=== PATIENT | male | born 1975 | race Hispanic/Latino ===

== ENCOUNTER 2016-05-13 14:55 | Emergency (ER) | payer SELFPAY ==
[~2016-05-13] VITALS: Ht 185.4 cm; Wt 109.1 kg
[2016-05-13 15:00] VITALS: BP 162/94; PULSE 83; RESP 15; O2SAT 98
[2016-05-13 16:40] LABS: BASOPHILS % (AUTO) 0.4 % (0-3); EOSINOPHILS % (AUTO) 1.6 % (0-5); MONOCYTES % (AUTO) 6.3 % (4-12); Mean Corpuscular Hemoglobin 28.2 pg (27.0-35.0); Mean Corpuscular Volume 80.6 fL (81-100); NEUTROPHILS % (AUTO) 63.2 % (40-74); Platelet Count 293 bil/L (150-400)
--- NOTE | 2016-05-13 18:12 | ED.REPORT ---
HPI-Extremity Problem Lower Date of Service May 13, 2016 ED Provider: Ankita Baron MD This is a 40 year old male with a history of DM presenting to the emergency department complaining of R foot swelling that worsened 12 hours ago. Pt was admitted to a hospital in [place] 7 months ago for one week and diagnosed with staph infection to the R foot, at this time he was tested for osteomyelitis which was negative. Pt reports persistent wound at the site. However today, he woke up with significant R foot swelling which prompted his ER visit today. Reports numbness, tingling, and a "tight" feeling in the foot. This is associated with shooting pain up the R calf. Denies fever, chills, cough , abdominal pain, nausea or vomiting. Nursing Notes Stated Complaint: RIGHT FOOT SWOLLEN/PURPLE Chief Complaint: Extremity Trauma Nursing Notes Reviewed: Yes Allergies: Coded Allergies: No Known Allergies (Unverified , 05/13/16) Scheduled Sulfamethoxazole/Trimeth 800-160 mg (Bactrim DS 800-160 mg) 1 Each Tablet 1 TABLET PO BID General Time Seen by MD: 18:04 Chief Complaint Foot injury right Hx Obtained From: Patient Arrived By: Walk-in Onset Occurred: 9 - 12 hours ago (6 months) Symptom Duration: Since onset Severity: Current: No pain currently Pertinent Negative: Pt denies other symptoms Recent Healthcare: No recent doctor visit, No recent hospitalization Similar Sx Previous: No Past Medical History Past Medical History Reports: Diabetes mellitus Past Surgical History Denies Ambulatory Status Independent Review of Systems Constitutional: Denies: Chills, Fever Musculoskeletal: Reports: Extremity pain, Extremity swelling Neurologic: Denies: Headache Complete sys rev & neg: except as marked. GI: Denies: Abdominal pain, Nausea, Vomiting Physical Exam Initial Vital Signs Vital Signs (First) Date Time Temp Pulse Resp B/P Pulse Ox O2 Delivery O2 Flow Rate FiO2 05/13/16 15:00 36.8 83 15 162/94 98 05/13/16 19:42 Room Air Initial VS: Reviewed General/Constitutional: Well-developed, Well-nourished Head / Eyes: Atraumatic, Normocephalic, PERRL ENT: Mucous membranes moist, Conjunctiva normal, No scleral icterus Neck: Supple, Non-tender, Full range of motion Respiratory: Breath sounds normal, Clear to auscultation, No respiratory distress Cardiovascular: Regular rate & rhythm, Heart sounds normal, Intact distal pulses Abdomen / GI: Soft, Non-tender, No guarding, No rebound, No distention Upper Extremities: Vascular intact, Neuro intact, No swelling, No tenderness Skin: Warm, Dry, No cyanosis Neurologic: Alert, Oriented, Nonfocal Psychiatric: Mood/affect normal, Behavior normal, Normal thought content Lower Extremity / Pelvis / MS: Atraumatic, Inspection NL, Full range of motion , No swelling, Non-tender, No erythema, No deformity, Neurologic intact, Vascular intact, No edema Ankle / Foot: Neurologic intact R foot: Ball under R great toe has a callus with granular tissue, 2-3 cm deep ulceration without surrounding erythema, edema, or purulence. Wound is well-appearing. Interpretation & Diagnostics Interpretation & Diagnostics: R FOOT X-RAY IMPRESSION: 1. Cutaneous ulcer on the plantar aspect of the foot with subjacent mild periosteal reaction at the base of the 1st proximal phalanx and probable small ulcer. The findings are highly suspicious for osteomyelitis. Further evaluation may be obtained with an MRI if clinically indicated. Dictated by: Kris Adams M.D. on 05/13/2016 at 18:54 Approved by: Kris Adams M.D. on 05/13/2016 at 18:56 Lab Results Interpretation Result Diagram: 05/13/16 1625 05/13/16 1625 Test 05/13/16 16:25 White Blood Count 7.0th/mm3 (3.8-10.1) Red Blood Count 4.58mil/mm3 (4.40-5.80) Hemoglobin 12.9g/dL (13.8-17.2) Hematocrit 36.9% (41.0-50.0) Mean Corpuscular Volume 80.6fL (81-100) Mean Corpuscular Hemoglobin 28.2pg (27.0-35.0) Mean Corpuscular Hemoglobin Concent 35.0% (32.0-37.0) Red Cell Distribution Width 12.3% (12.3-15.4) Platelet Count 293bil/L (150-400) Neutrophils (%) (Auto) 63.2% (40-74) Lymphocytes (%) (Auto) 28.4% (14-46) Monocytes (%) (Auto) 6.3% (4-12) Eosinophils (%) (Auto) 1.6% (0-5) Basophils (%) (Auto) 0.4% (0-3) Sodium Level 136mEq/L (134-144) Potassium Level 4.4mEq/L (3.5-5.2) Chloride Level 100mEq/L (97-108) Carbon Dioxide Level 21mmol/L (18-29) Blood Urea Nitrogen 19mg/dL (6-24) Creatinine 0.55mg/dL (0.76-1.27) Estimat Glomerular Filtration Rate 175mL/min (>59) Glucose Level 196mg/dL (60-99) Lactic Acid Level 1.6mmol/L (0.4-2.0) Calcium Level 9.0mg/dL (8.5-10.1) Total Bilirubin 0.3mg/dL (0.0-1.2) Aspartate Amino Transf (AST/SGOT) 13U/L (0-50) Alanine Aminotransferase (ALT/SGPT) 14U/L (0-44) Alkaline Phosphatase 57U/L (25-150) Total Protein 6.8g/dL (6.4-8.4) Albumin 4.0g/dL (3.4-5.0) Re-Eval/Medical Decision Med Decision/Clinical Course 40-year-old male with past medical history of insulin-dependent diabetes here with ulcer to his right foot associated with the swelling. Differential diagnosis includes but is not limited to osteomyelitis versus cellulitis versus diabetic foot wound versus chronic ulcer. Patient's CBC is remarkable for very mild anemia, without leukocytosis. His CMP shows hyperglycemia, and is otherwise normal. His x-ray is concerning for osteomyelitis. Given the patient has completely normal labs aside from hyperglycemia, and he is extremely well appearing, I discussed the case with miranda Harding and have arranged for close outpatient follow-up. She agreed with my assessment to give the patient Bactrim and she requested a wound culture, which I sent. She will see the patient in the next few days. He is amenable to discharge and has been given very strict return precautions. Re-Evaluation/Progress : Time of Eval: 19:23 Re-Evaluation/Progress Note: re-checked, discussed need for close follow up and plan for d/c, all questions addressed. Consultation : Referral / Consult Name: Mirian Elliott DPM Call Returned at: 19:17 Crm Marketing Specialist: Agrees with eval, Agrees with plan Note: rapid transit operator, plan for follow up, recommends bactrim and wound culture. Counseled Regarding: Diagnosis, Lab results, Need for follow-up, When/why to return to ED Discharge & Departure Impression: Primary Impression: Osteomyelitis Osteomyelitis location: foot Laterality: right Chronicity: unspecified Qualified Code: M86.9 - Osteomyelitis, unspecified Disposition: Home Discharge Condition All VS Reviewed: Yes Condition: Stable Patient Instructions: Osteomyelitis (ED) Additional Instructions: Thank you for seeking care at the emergency department today. Take Bactrim as prescribed. Follow up with Dr. Elliott, rapid transit operator. The office will call you to schedule an appointment. Return to the emergency department for any new or worsening symptoms. Referrals: Mirian Elliott DPM Scribe Attestation Portions of this note were transcribed by David Hayes. I, Dr. Baron personally performed the history, physical exam and medical decision-making; I reviewed and confirmed the accuracy of the information in the transcribed note. Signed by: paul Renteria. 05/13/2016, 23:00. Ankita Baron MD May 13, 2016 18:12 DAVID HAYES May 13, 2016 18:23
[2016-05-13] MEDS ORDERED: Trimethoprim-Sulfa 160 mg-800 mg Tablet PO ONE (18:25)
--- NOTE | 2016-05-13 18:57 | DRSVH ---
PROCEDURE: X-RAY RIGHT FOOT COMPLETE, MINIMUM THREE VIEWS ([id number]) INDICATIONS: diabetic foot wound TECHNIQUE: 3 views of the foot were acquired. COMPARISON: None. FINDINGS: Bones: There is suggestion of contrast reaction along the plantar aspect of the base of the 1st prox imal phalanx. Oblique images also demonstrate suggestion of a small erosion at the base of the 1st p roximal phalanx. No fractures or dislocations. Soft tissues: There is soft tissue swelling in the forefoot most prominent in the plantar aspect wit h a cutaneous ulcer demonstrated at the level of the 1st proximal phalanx. IMPRESSION: 1. Cutaneous ulcer on the plantar aspect of the foot with subjacent mild periosteal reaction at the base of the 1st proximal phalanx and probable small ulcer. The findings are highly suspicious for os teomyelitis. Further evaluation may be obtained with an MRI if clinically indicated. Dictated by: Kris Adams M.D. on 05/13/2016 at 18:54 Approved by: Kris Adams M.D. on 05/13/2016 at 18:56
[2016-05-13] MEDS ORDERED: SULF1TAB35 PO (19:27)
[2016-05-13 19:42] VITALS: BP 146/91; PULSE 86; RESP 16; O2SAT 98
[2016-08-27] MEDS ORDERED: LIP40 PO (15:55)
[2016-08-27] MEDS ORDERED: METF1000 PO (15:55)
[2016-08-27] MEDS ORDERED: INSU100I25 SQ (15:55)
== END 2016-05-13 19:44 | disposition home or self-care (01) ==
LOC: SED 14:55
DX: M86.9 Osteomyelitis, unspecified (principal); R20.0 Anesthesia of skin; R20.2 Paresthesia of skin; L84 Corns and callosities; E11.621 Type 2 diabetes mellitus with foot ulcer; L97.419 Non-pressure chronic ulcer of right heel and midfoot with unspecified severity

== ENCOUNTER 2016-08-28 05:34 | Day surgery (SDC) | payer OTHER ==
[2016-08-28] VITALS (13 sets, daily range): BP systolic 111–168; BP diastolic 69–92; PULSE 71–99; RESP 12–22; O2SAT 95–100
[~2016-08-28] VITALS: Ht 185.4 cm; Wt 106.5 kg
[~2016-08-28 05:34] MED LIST: INSU100I25 SQ; LIP40 PO; Lactated Ringer's 1,000 ML IV SCH; METF1000 PO; SULF1TAB35 PO
[2016-08-28] MEDS ORDERED: Glucose 40% Oral Gel 15 Gm Tube PO ONE (05:35)
[2016-08-28] MEDS ORDERED: Ondansetron 2 mg/mL 2 mL Inj ONE (05:35)
[2016-08-28] MEDS ORDERED: Phenylephrine/NS 100 mCg/mL 10 mL Syringe IVPUSH ONE (05:35)
[2016-08-28] MEDS ORDERED: Propofol 10,000 mCg/mL 20 mL Inj ONE (05:35)
[2016-08-28] MEDS ORDERED: EPHEDrine/NS 5 mg/mL 5 mL Syringe ONE (05:35)
[2016-08-28] MEDS ORDERED: Ketamine 10 mg/mL 20 mL Inj ONE (05:35)
[2016-08-28] MEDS ORDERED: CeFAZolin Inj 2 GM in IV Premix 1 EACH IV ONE (06:00)
[2016-08-28] MEDS ORDERED: Lactated Ringer's 1,000 ML IV ONE ×2 (06:43→08:16)
[2016-08-28] MEDS ORDERED: Insulin LISPRO 300 Unit/3 mL Inj ONE (07:09)
[2016-08-28] MEDS ORDERED: Lactated Ringer's 1,000 ML IV SCH (07:27)
[2016-08-28] MEDS ORDERED: Lactated Ringer's 500 ML IV PRN (07:27)
--- NOTE | 2016-08-28 07:27 | PCM.HPANE ---
Patient Data Surgeon Admitting Provider: Attending Provider:Mirian Elliott DPM Primary Care Physician:Jatinder Pride Other Provider:Terri Sosa Anesthesia Reason for Visit Right Foot Lisfranc Dislocation Ht/WT & BMI Height (Feet): 6 Height (Inches): 1.00 Weight (Kilograms): 106.5 Body Mass Index 31.00 Allergies Coded Allergies: No Known Allergies (Unverified , 08/27/16) Past Anesthesia History Anesthesia History: Denies:: Anesthesia Reactions, Malignant Hyperthermia Diabetes History Hx Diabetes?: Yes (INSULIN) Type of Diabetes: Type II Glycemic Control: Insulin & Oral Medication Current Bedside Blood Glucose: 256 MRSA MRSA: No Medications Hypertension Medication: No Home Meds Incl Beta Fadumo: No Reported Medications Metformin (Glucophage)1,000 Mg Tablet1,000 Mg PO BID Ref 0 08/27/16 Insulin Detemir (Levemir Flextouch)100 Unit/1 Ml Insuln.pen40 Unit SQ HS 08/27/16 Atorvastatin (Lipitor)40 Mg Lsickg21 Mg PO DAILY Ref 0 08/27/16 Discontinued Scripts Sulfamethoxazole/Trimeth 800-160 mg (Bactrim DS 800-160 mg)1 Each Tablet1 Tablet PO BID #20 TABLET Ref 0 Prov:Ankita Baron MD 05/13/16 History History of ENT Problems?: No HEENT History: Denies:: Abnormal Airway Difficult Intubation Denture Type: None Teeth Condition: Within Normal Limits Hx of Heart Problems?: Yes Cardiovascular History: Denies:: Congestive Heart Failure Heart Murmur Hypertension (HYPERLIPIDEMIA) Hx of Respiratory Problem?: No Respiratory History: Denies:: Tuberculosis Use of C-PAP Machine Hx Neurologic Problems?: Yes Other Neurological Pertinent: C/OF DIABETIC NEUROPATHY Hx of GI Problems?: No Hx of Problems?: No Male Hx: Denies:: Prostate Problems Scrotal Mass Testicular Surgery Skin History: Positive for:: Pressure Ulcers (RT GREAT TOE) Denies:: History Skin Disorders? Hx Musculoskeletal Problems?: Yes Musculoskeletal History: Positive for:: Musculoskeletal Trauma (S/P RT FOOT RPR RT FOOT LISFRANC FX=CURRENT PROBLEM) Hx of Psycho/Social Problems?: No Hx Surgeries?: Yes (R foot) Hx Any Other Health Problems?: Yes Other History: Denies:: Cancer Endocrine Disease Hospitalization Thyroid Disease Hx Diabetes: Yes (INSULIN)Bedside Blood Glucose: 256 Hx Alcohol Use: NoHx Substance Use: Yes (marijuana) Smoking Status: Never Smoker Have You Smoked inLast 12 mo: No Stop/Bang Treated for Sleep Apnea?: No Do You Have a CPAP Machine?: No S-Snoring: Do You Snore Loudly: No T-Tired: feel tired, fatigued: No O-Obsered: Observed not breath: No P-Blood Pressure: treated: No B- Body Mass Index > 35 kg/m2: No A- Age over 50: No N- Neck Large Circumference: No G- Gender Male: Yes MANUELITO Total Score: 1 Risk Assessment Category Category 1A: Patient has history of documented sleep apnea, and HAS NOT received any narcotic, sedative or anesthesia administration during this stay. Category 1B: Patient has history of documented sleep apnea, and HAS received any narcotic , sedative or anesthesia administration during this stay Category 2: Patient has SUSPECTED Obstructive Sleep Apnea, and HAS received any narcotic , sedative or anesthesia administration during this stay. Category 3: Patient has SUSPECTED Obstructive Sleep Apnea and HAS NOT received narcotic, sedative or anesthesia administration during this stay. Category 4: Outpatient in Procedural Areas with known sleep apnea or who screen positive for High Risk via the STOP/BANG questionnaire. Exam Exam Vital Signs Vital Signs Date Time Temp Pulse Resp B/P Pulse Ox O2 Delivery O2 Flow Rate FiO2 08/28/16 06:28 36.6 79 18 111/72 98 Room Air General Appearance: Alert, Oriented X3, Cooperative, No Acute Distress HEENT/AIRWAY: MP 2 Lungs: Clear to Auscultation, Normal Air Movement Heart: Exam Unremarkable, Regular Rate/Rhythm, No Murmurs/Rubs/Gallops Meds/Labs/Diagnostics Admission Meds Current Medications Lactated Ringer's (Lr) 1,000 ml @ ud STK-MED ONCE IV Last administered on 08/28t 06:43; Start 08/28/16 at 06:43; Stop 08/28/16 at 06:44; Status DC Bedside Blood Glucose: 256 Plan Impression Patient chart reviewed, patient interviewed and anesthestic plan with risks, benefits, and alternatives discussed, and informed consent obtained. ASA Physical Status: ASA3 Severe Disease (dm with complicatins) Anesthetic Plan: GA Bene/Risks/Altern/Consents: Yes HP Complete Prior to Induction: Yes César Winter MD August 28, 2016 07:27
[2016-08-28] MEDS ORDERED: Gentamicin 40 mg/mL 2 mL Inj IRRIGATION ONE (07:29)
[2016-08-28] MEDS ORDERED: Insulin LISPRO 300 Unit/3 mL Inj IV ONE ×2 (07:29→11:00)
[2016-08-28] MEDS ORDERED: Ondansetron 2 mg/mL 2 mL Inj IVPUSH PRN ×2 (07:30→10:00)
[2016-08-28] MEDS ORDERED: Dexamethasone 4 mg/mL Inj IVPUSH PRN (07:30)
[2016-08-28] MEDS ORDERED: fentaNYL-PF 50 mCg/mL 2 mL Inj IVPUSH PRN (07:30)
[2016-08-28] MEDS ORDERED: HYDROmorphone 1 mg/mL Inj IVPUSH PRN (07:30)
[2016-08-28] MEDS ORDERED: Phenylephrine 10,000 mCg/mL Inj IVPUSH PRN (07:30)
[2016-08-28] MEDS ORDERED: MetoCLOpramide 5 mg/mL 2 mL Inj IVPUSH PRN (07:30)
[2016-08-28] MEDS ORDERED: EPHEDrine Sulfate 50 mg/mL Inj IVPUSH PRN (07:30)
[2016-08-28] MEDS ORDERED: Bupivacaine-MPF 0.5% 30 mL Inj INFILTRATE ONE (08:00)
--- NOTE | 2016-08-28 10:06 | PCM.PODBR ---
Immediate Operative Note Date of Service: August 28, 2016 Date of Service August 28, 2016 Pre Operative Diagnosis Right 2nd and 3rd tarsometatarsal fracture dislocation Post Operative Diagnosis Right 2nd and 3rd tarsometatarsal fracture dislocation Procedure Right 2nd and 3rd Tarsometatarsal fusion and intercuneiform stabilization Surgeon Surgeon: Mirian Elliott DPM Assistants: None Findings Consistent with CT findings. Good reduction. Slight shortening of 2nd met due to comminution. Grafts, Implants: Implants-See Implant Record Complications There were no periprocedural complications identified. Condition Stable Anesthetic Administered: GA Drains: None Catheters: None Output, Estimated Blood Loss: 10 (ml) Blood Admin during surgery: No Surgical Cast or Splint: Well-padded Short Leg Splint Surgical Specimen Removed: No Surgical Specimen sent to Path: No Post Operative Plan No weightbearing on right foot Additional Information Overnight stay for pain control, NWB and PT, postop IV antibiotics due to previous Hx of osteomyelitis. Mirian Elliott DPM August 28, 2016 10:06
--- NOTE | 2016-08-28 11:00 | DRSVH ---
PROCEDURE: X-RAY RIGHT FOOT COMPLETE, MINIMUM THREE VIEWS ([id number]) INDICATIONS: immediate post-op TECHNIQUE: 3 views of the foot were acquired. COMPARISON: [facility], CR, XR FOOT MIN 3VW WT BEARING RT, 06/28/2016, 17:10. [facility], CR, XR FOOT MIN 3VW WT BEARING RT, 08/16/2016, 14:34. [facility], CT, CT FOOT RT WO CON, 08/20/2016, 12:34. [facility], CR, XR FOOT 3VW RT, 05/13/2016, 18:29. FINDINGS: Bones: No fractures or dislocations. No suspicious bony lesions. There is postoperative fusion scr ews and plate involving the first and second tarsal-metatarsal regions. Normal alignment established . Soft tissues: No tibiotalar joint effusion. Achilles tendon appears normal. IMPRESSION: Normal alignment established after ORIF and fusion of Lisfranc fracture previously identi fied. Mild irregularity at the medial aspect of the first MTP joint does not appear to have worsened from t he prior study 05/13/16. Dictated by: Valeriano Schneider M.D. on 08/28/2016 at 10:55 Approved by: Valeriano Schneider M.D. on 08/28/2016 at 10:58
--- NOTE | 2016-08-28 11:21 | PCM.ANEP1 ---
Post Anesthesia PACU Phase 1 Assessment Vital Signs Vital Signs Date Time Temp Pulse Resp B/P Pulse Ox O2 Delivery O2 Flow Rate FiO2 08/28/16 10:11 81 16 122/72 95 08/28/16 10:05 79 15 133/83 96 08/28/16 10:00 37.4 77 14 133/87 95 Room Air 08/28/16 06:28 36.6 79 18 111/72 98 Room Air Anesthetic Administered: GA Level of Alertness: Sleepy, easy to arouse MARIEE's with Equal Strength: Yes Pain: No Nausea or Vomiting: No CV Function & Hydration Stable: Yes Airway Device: none Oxygen Delivery: Simple Mask Lungs: Clear to Auscultation, Normal Air Movement Dermatome Level: Full Sensation PACU Phase 2 Assessment Complications: No Follow up Care: No Patient Instructions Provided: Yes César Winter MD August 28, 2016 11:21
--- NOTE | 2016-08-28 13:06 | PCM.HPMED ---
Subjective Date of Service August 28, 2016 Primary Provider: Admitting Physician: Primary Care Physician: Jatinder Pride Attending Physician: Mirian Elliott DPM Chief Complaint: diabetes management medical consult History of Present Illness: 40-year-old inflamed Zak with S medical history of diabetes type II, neuropathy,. Prior osteomyelitis of the right foot is presenting to the floor following repair of right second and third metatarsal tarsal metatarsal fracture dislocation by Dr. Elliott. Red Team is consulted for medical management. Patient states that he does not know what his A1c is, he confirms to me that he takes metformin 500 mg twice a day, atorvastatin, Levemir 40 units at night. He did take his insulin last night, he denies recent hypoglycemic incidents. He does not know what his last A1c was. He sees Jatinder Leblanc at the residency clinic who is working on a diabetes plan for him. Patient stands on his feet at work 11 hours a day and does not know when he has suffered the Lisfranc fractures. His surgeon Dr. Manuel would like for him to stay on Ancef until tomorrow evening with the plan to discharge him tomorrow evening. There is no blood work ordered for today per records. Vital signs are stable Review of Systems: Gen.: No weight gain patient has not been having fevers and malaise Eyes: no visual disturbances or blurring vision HEENT: No nose/throat drainage, no pain in ears or throat, no hearing loss Lymph: No lymph nodes noted Cardiac: No chest pain, orthopnea, PND, palpitations , pedal edema or dyspnea on exertion Pulmonary: Denies wheezing or bringing up of sputum worsening dyspnea and cough, left-sided chest pain GI: No anorexia nausea vomiting blood or black in the stool : no dysuria hematuria urinary frequency or decrease in urine output. Currently has an urge to urinate but says he does not really Go Musculoskeletal: Pain is 0-10 in the left foot Neuro: No syncope, seizures no loss of consciousness no new focal weakness, numbness or tingling Psychiatric: New new anxiety insomnia or depression Endocrine: No new heat or cold intolerances polyuria or polydipsia Hematology: No lymphadenopathy or easy bleeding or bruising noted skin: No new rashes, stasis dermatitis Allergies Coded Allergies: No Known Allergies (Unverified , 08/27/16) PMH Diabetes type II, neuropathy, prior osteomyelitis that resolved after Bactrim Surgical History Appendectomy Family History Denies strokes or heart disease in family Mother: Diabetes Bed: Diabetes, unknown finding and a colonoscopy Social History Occupation: works at a company making buil Hx Alcohol Use: No (quit 6 months ago) Hx Substance Use: Yes (marijuana, last usage was 2 days ago) Smoking Status: Never Smoker Living Arrangement: with Family (. Brothers family) Exam Vital Signs Vital Sign - Last Date Time Temp Pulse Resp B/P Pulse Ox O2 Delivery O2 Flow Rate FiO2 08/28/16 12:01 36.6 80 20 127/80 98 Room Air Exam Gen.: No acute distress HEENT: Normocephalic, atraumatic Heart: Regular rate and rhythm last S4 sounds Lungs: Clear to auscultation no crackles or wheezes Abdomen soft nontender nondistended normal bowel sounds Extremities right leg is wrapped in dressings all the way up to above the knee normal range of motion in the left leg Vascular: Pedal pulses are present in the left leg foot Neuro: No focal deficits Psych: Negative for anxiety Lab and Diagnostics X-Rays, CTs and MRIs IMPRESSION: 1. Lisfranc fracture-dislocation involving the 2nd and 3rd tarsometatarsal joints as described. 2. Bony erosive changes and fragmentation medially at the 1st metatarsophalangeal and 1st interphalangeal joints likely representing sequelae of osteomyelitis. Dictated by: Kris Adams M.D. on 08/20/2016 at 15:21 Approved by: Kris Adams M.D. on 08/20/2016 at 15:44 08/20/16 CT Foot MPRESSION: Normal alignment established after ORIF and fusion of Lisfranc fracture previously identified. Mild irregularity at the medial aspect of the first MTP joint does not appear to have worsened from the prior study 05/13/16. Dictated by: Valeriano Schneider M.D. on 08/28/2016 at 10:55 Approved by: Valeriano Schneider M.D. on 08/28/2016 at 10:58 Assessment & Plan This is a 40-year-old male with past medical history of diabetes, neuropathy, hyperlipidemia, prior osteomyelitis of the right foot presenting status post Lisfranc fracture stabilization and fusion by Dr. ULISES reese Assessment #Diabetes mellitus type II: --continue metformin, 32 units of Lantus at night, slow sliding scale -- A1c is ordered Assessment #Hyperlipidemia, chronic --Continue atorvastatin 40 mg daily Assessment #Chronic neuropathy: -- Patient has no medications Lisfranc fracture fusion and repair: -- Pain control per primary team -- Physical therapy per primary team Disposition to home on 08/29/2016 following recovery Pain Evaluation: Adequate Pain Control Resuscitation Status: CPR: Attempt Resuscitation (his brother is the alternate decision-maker) Time spent 30 min Nyasia Andrews DO August 28, 2016 13:06
[2016-08-28] MEDS ORDERED: Dextrose 10% 250 ML IV PRN (13:25)
[2016-08-28] MEDS ORDERED: Glucose 40% Oral Gel 15 Gm Tube PO PRN (13:25)
--- NOTE | 2016-08-28 15:22 | NUR ---
Evaluation completed. Please go to "Notes" then click on "Assessments and Notes" (bottom left corner of screen). Then select appropriate discipline tab on top of screen.
--- NOTE | 2016-08-28 15:35 | NUR ---
Post op Pt arrived on unit at 1145 on [place], slid to bed by staff. Pt A&O x 3, but states he feels "groggy", dressing is robi wrap from foot to knee and is CDI, ice bag under knee and foot elevated on pillow. Strong posterior tibial pulse. SCD on bed and applied to pt. RA and IV connected to surgical tubing. Pt states no pain at all and per report from JULIANA Mcclure in PACU pt had block done. Pt eager to drink and requesting water. Blood sugar checked in PACU and was 203, insulin was given and bottle brought from them placed in pt's med drawer. Belongings called for from day surgery. Pt oriented to room, call light and visiting hours. Call light in reach, bed in low, continue q1 hour monitoring.
[2016-08-28] MEDS ORDERED: 0.9% Sodium Chloride 100 ML ONE (16:36)
[2016-08-28] MEDS: CeFAZolin Inj 2 GM in IV Premix 1 EACH IV SCH ×2 (16:48→23:59)
[2016-08-28] MEDS: Insulin LISPRO 300 Unit/3 mL Inj SUBQ SCH ×2 (17:40→21:19)
[2016-08-28] MEDS: Senna-Docusate 8.6-50 mg Tablet PO SCH (20:35)
[2016-08-28] MEDS: oxyCODONE-Acetamin 5-325 mg Tablet PO PRN (20:35)
[2016-08-28] MEDS: Heparin 5,000 Unit/mL Inj SUBQ SCH (20:35)
[2016-08-28] MEDS ORDERED: Insulin GLARgine 100 Unit/mL Syringe SUBQ SCH (21:00)
[2016-08-29] VITALS (7 sets, daily range): BP systolic 112–144; BP diastolic 71–81; PULSE 90–121; RESP 16–20; O2SAT 98–99
--- NOTE | 2016-08-29 02:04 | NUR ---
Activity/Pain Patient up in chair and to BR with SBA using FWW. NWB on right foot. Tolerates fairly well. Needs reminders to not place weight on right foot. CARMEN wrap in place to RLE. Received two Percocet PO for c/o increasing pain to right foot at beginning of shift. Stated he felt like the block was wearing off and pain was a 3/10 to right foot and continuing to rise. Percocet effective for pain management. Upon reassessment, denied any pain to right foot. No further c/o pain or discomfort.
[2016-08-29] MEDS: Heparin 5,000 Unit/mL Inj SUBQ SCH ×3 (03:56→20:26)
[2016-08-29 05:41] LABS: BASOPHILS % (AUTO) 0.2 % (0-3); MONOCYTES % (AUTO) 11.5 % (4-12); Mean Corpuscular Hemoglobin 27.9 pg (27.0-35.0); Mean Corpuscular Volume 81.9 fL (81-100); NEUTROPHILS % (AUTO) 60.4 % (40-74); Platelet Count 228 bil/L (150-400)
[2016-08-29] MEDS: oxyCODONE-Acetamin 5-325 mg Tablet PO PRN (07:57)
[2016-08-29] MEDS: Insulin LISPRO 300 Unit/3 mL Inj SUBQ SCH ×4 (07:57→20:41)
[2016-08-29] MEDS: Senna-Docusate 8.6-50 mg Tablet PO SCH ×2 (07:58→20:25)
[2016-08-29] MEDS: CeFAZolin Inj 2 GM in IV Premix 1 EACH IV SCH ×2 (07:58→17:52)
--- NOTE | 2016-08-29 09:18 | PCM.PNPOD ---
Subjective Date of Service: Aug 29, 2016 Visit Information: Reason for Visit Right Foot Lisfranc Dislocation Surgery/Surgery Date 08/28/2016/3rd TMT joint fusion, medial column stabilization for Lisfranc fracture/dislocation Post-Op Day # 1 Date of Admission: 08/28/2016 Hospital Day # 2 Subjective: Patient states his block wore off around 9pm yesterday. He took Percocet, felt nauseated after that. He had some trouble urinating at bedside and went to the bathroom. He felt something click in his foot. He is worried about hardware falling apart. I reassured him that it was not very likely unless he repeatedly walked on it or fell on it. Gastrointestinal: Good Appetite, Complains of Nausea Pain Management: PO, Good Pain Control Neurological: Numbness (at baseline) Postop Activity: Ambulating Independently, Ambulates with Assist Device (walker ) Objective Vital Sign - Last Date Time Temp Pulse Resp B/P Pulse Ox O2 Delivery O2 Flow Rate FiO2 08/29/16 04:52 36.9 94 20 127/77 98 Room Air Intake and Output 08/28/16 08/28/16 08/29/16 Cumulative From/Thru 15:00 23:00 07:00 08/27/16 15:55 - 08/29/16 06:01 Intake Total 1300 ml 865 ml 458 ml 2623 ml Output Total 20 ml 1000 ml 325 ml 1345 ml Balance 1280 ml -135 ml 133 ml 1278 ml Intake Oral 800 ml 400 ml 1200 ml IV Total 1300 ml 65 ml 58 ml 1423 ml Output Urine Total 1000 ml 325 ml 1325 ml Estimated Blood Loss 20 ml 20 ml # Voids 2 2 # Bowel Movements 0 0 Result Diagram: 08/29/16 0446 08/29/16 0446 Lab Test 08/29/16 04:46 White Blood Count 6.0th/mm3 (3.8-10.1) Red Blood Count 4.08mil/mm3 (4.40-5.80) Hemoglobin 11.4g/dL (13.8-17.2) Hematocrit 33.4% (41.0-50.0) Mean Corpuscular Volume 81.9fL (81-100) Mean Corpuscular Hemoglobin 27.9pg (27.0-35.0) Mean Corpuscular Hemoglobin Concent 34.1% (32.0-37.0) Red Cell Distribution Width 12.5% (12.3-15.4) Platelet Count 228bil/L (150-400) Neutrophils (%) (Auto) 60.4% (40-74) Lymphocytes (%) (Auto) 26.9% (14-46) Monocytes (%) (Auto) 11.5% (4-12) Eosinophils (%) (Auto) 1.0% (0-5) Basophils (%) (Auto) 0.2% (0-3) Sodium Level 136mEq/L (134-144) Potassium Level 4.3mEq/L (3.5-5.2) Chloride Level 98mEq/L (97-108) Carbon Dioxide Level 22mmol/L (18-29) Blood Urea Nitrogen 18mg/dL (6-24) Creatinine 0.67mg/dL (0.76-1.27) Estimat Glomerular Filtration Rate 140mL/min (>59) Glucose Level 262mg/dL (60-99) Calcium Level 8.7mg/dL (8.5-10.1) Diagnostics Imaging confirms anatomic reduction and stable fixation of tarsometatarsal fracture dislocation. Exam General: Alert, Oriented X3, Cooperative, No Acute Distress Lungs: Clear to Auscultation, Normal Air Movement Postop Sensory Motor: Distal Motor Intact, Movement in Toes Surgical Cast or Splint: Well-padded Short Leg Splint Additional Information: No calf pain. The splint is dry and intact. Cap refill to toes is immediate. No concerns with dressing. Assessment & Plan Problems: (1) Lisfranc dislocation Qualifiers: Encounter type: subsequent encounter Laterality: right Qualified Code: S93.324D - Dislocation of tarsometatarsal joint of right foot, subsequent encounter Plan: Patient has tolerated first postop night well with PO pain medicine and will be safe for home discharge with a walker. He is anxious after noticing all that it will take to continue nonweightbearing on his foot. His blood glucose is uncontrolled right now. Dr. Andrews will increase his insulin regimen and see if we can get that down to below 200's for safe healing. I will keep him on IV cefazolin another day. Anticipate discharge home tomorrow with follow up with me on Friday. Status: Acute ICD Code: S93.326A Mirian Elliott DPM Aug 29, 2016 09:18
[2016-08-29] MEDS ORDERED: 0.9% Sodium Chloride 500 ML IV ONE (15:45)
--- NOTE | 2016-08-29 17:00 | NUR ---
Pain / nausea / orthostatic Pain seems to be controlled with elevation and ice as well as APAP mostly along with a Percocet once in a while. Pt noticed that his nausea decreased as he decreased his narcotic use. Per PT pt was light headed and dizzy on standing twice today. Vitals were taken and Orthostatic Hypotension was noted. MD aware 500ml bolus will be given. Encouraged pt to drink more fluids.
[2016-08-29] MEDS ORDERED: Insulin LISPRO 300 Unit/3 mL Inj SUBQ SCH (17:30)
[2016-08-29] MEDS: guaiFENesin 600 mg ER12 Tablet PO SCH (20:24)
[2016-08-29] MEDS ORDERED: Insulin GLARgine 100 Unit/mL Syringe SUBQ SCH (21:00)
--- NOTE | 2016-08-29 22:40 | PCM.PNMED ---
Subjective Date of Service Aug 29, 2016 Subjective Patient is seen and examined. He says that he has some cough with some mucus. He he states that he angelita up to go to the bathroom and he thought he heard a pop in his foot. He told this to Dr. Manuel and she will order an x-ray. He states that he sometimes gets nauseated with pain medication but has not vomited. He has no other concerns Exam Vital Signs Vital Sign - Last Date Time Temp Pulse Resp B/P Pulse Ox O2 Delivery O2 Flow Rate FiO2 08/29/16 20:36 36.9 96 20 144/81 98 Room Air Intake and Output 08/28/16 08/28/16 08/29/16 Cumulative From/Thru 15:00 23:00 07:00 08/27/16 15:55 - 08/29/16 06:01 Intake Total 1300 ml 865 ml 458 ml 2623 ml Output Total 20 ml 1000 ml 325 ml 1345 ml Balance 1280 ml -135 ml 133 ml 1278 ml Intake Oral 800 ml 400 ml 1200 ml IV Total 1300 ml 65 ml 58 ml 1423 ml Output Urine Total 1000 ml 325 ml 1325 ml Estimated Blood Loss 20 ml 20 ml # Voids 2 2 # Bowel Movements 0 0 Exam Gen.: No acute distress it up in bed HEENT: Normocephalic, atraumatic Heart: Regular rate and rhythm last S4 sounds Lungs: Clear to auscultation no crackles or wheezes Skin: Warm and dry Neuro: No focal deficits Psych: Negative for anxiety Abdomen: Nontender nondistended normal bowel sounds Feet are warm to touch, palpable pulse in the left foot IVs and Medications IV Fluids 500 mL boluses given Medications Reviewed: Medications were reviewed in detail Lab and Diagnostics Result Diagram: 08/29/166 08/29/16 0446 X-Rays, CTs and MRIs IMPRESSION: 1. Lisfranc fracture-dislocation involving the 2nd and 3rd tarsometatarsal joints as described. 2. Bony erosive changes and fragmentation medially at the 1st metatarsophalangeal and 1st interphalangeal joints likely representing sequelae of osteomyelitis. Dictated by: Kris Adams M.D. on 08/20/2016 at 15:21 Approved by: Kris Adams M.D. on 08/20/2016 at 15:44 08/20/16 CT Foot MPRESSION: Normal alignment established after ORIF and fusion of Lisfranc fracture previously identified. Mild irregularity at the medial aspect of the first MTP joint does not appear to have worsened from the prior study 05/13/16. Dictated by: Valeriano Schneider M.D. on 08/28/2016 at 10:55 Approved by: Valeriano Schneider M.D. on 08/28/2016 at 10:58 Assessment & Plan This is a 40-year-old male with past medical history of diabetes, neuropathy, hyperlipidemia, prior osteomyelitis of the right foot presenting status post Lisfranc fracture stabilization and fusion by Dr. ULISES reese Assessment #Diabetes mellitus type II: -- A1c is ordered, A1c was 9 per next gen records -- Added mealtime and humalog insulin of 5 units each, increased at bedtime Lantus to 40 units on 08/29 -- Continue sliding scale insulin Assessment #Hyperlipidemia, chronic --Continue atorvastatin 40 mg daily Assessment #Chronic neuropathy: -- Patient has no medications Lisfranc fracture fusion and repair: -- Pain control per primary team -- Physical therapy per primary team Disposition to home on 08/29/2016 following recovery Pain Evaluation: Adequate Pain Control VTE Mechanical Devices: Intermittant Pneumatic CD Resuscitation Status: CPR: Attempt Resuscitation (his brother is the alternate decision-maker) Time spent 25 min Nyasia Andrews DO Aug 29, 2016 22:40
[2016-08-30] MEDS: CeFAZolin Inj 2 GM in IV Premix 1 EACH IV SCH ×2 (00:19→09:51)
--- NOTE | 2016-08-30 03:49 | NUR ---
ACTIVITY/PAIN CONTROL: Resting in bed this shift. Made no attempts to get oob. Using urinal for voiding. BP WNL this shift, denied any dizziness. Declined narcotics for pain, requested PO Tylenol, effective for mild pain. Sleeping without difficulty. Constipated since MAT CUTTER, given stool softeners, no result reported yet. On going care.
[2016-08-30] MEDS: Heparin 5,000 Unit/mL Inj SUBQ SCH ×2 (04:20→11:36)
[2016-08-30 05:30] VITALS: BP 129/81; PULSE 82; RESP 20; O2SAT 95
--- NOTE | 2016-08-30 09:16 | DRSVH ---
PROCEDURE: X-RAY RIGHT FOOT COMPLETE, MINIMUM THREE VIEWS ([id number]) INDICATIONS: Patient WB After surgery and felt a pop TECHNIQUE: 3 views of the foot were acquired. COMPARISON: [facility], CR, XR FOOT 3VW RT, 05/13/2016, 18:29. [facility], CR, XR FOOT MIN 3VW WT BEARING RT, 08/16/2016, 14:34. [facility], CR, XR FOOT 3VW RT, 07/31, 10:25. FINDINGS: Bones: No fractures or dislocations. No suspicious bony lesions. Stable appearance the bony alignm ent and post surgical changes redemonstrated related to fusion plate and screws involving the first a nd second tarsometatarsal joints. Hardware is in expected unchanged position. There is mild irregul arity again seen along the medial aspect of the first MTP joint which is unchanged. Soft tissues: No tibiotalar joint effusion. Achilles tendon appears normal. IMPRESSION: 1. Interval postsurgical changes and bony alignment. 2. Irregularity along the medial aspect of the first MTP joint unchanged. Dictated by: Justen Abel [facility] Interpreted: Valeriano Schneider MD on 08/30/2016 at 9:10 Transcribed by: LIBERTY on 08/30/2016 at 9:16 Approved by: Valeriano Schneider M.D. on 08/30/2016 at 11:36
[2016-08-30] MEDS: Insulin LISPRO 300 Unit/3 mL Inj SUBQ SCH ×4 (09:55→11:42)
[2016-08-30] MEDS ORDERED: 0.9% Sodium Chloride 250 ML ONE (09:57)
[2016-08-30] MEDS: Senna-Docusate 8.6-50 mg Tablet PO SCH (10:00)
[2016-08-30] MEDS: guaiFENesin 600 mg ER12 Tablet PO SCH (10:01)
[2016-08-30] MEDS ORDERED: Polyethylene Glycol (PEG) 17 Gm Powder PO PRN (10:10)
[2016-08-30] MEDS ORDERED: Codeine-APAP 30-300 mg Tablet PO PRN (10:10)
[2016-08-30 11:42] VITALS: BP 127/77; PULSE 79; RESP 18; O2SAT 100
[2016-08-30] MEDS ORDERED: Insulin LISPRO 300 Unit/3 mL Inj SUBQ ONE (12:15)
[2016-08-30] MEDS ORDERED: INSU100V7 SUBQ (13:15)
[2016-08-30] MEDS ORDERED: INSLIS SUBQ (13:15)
[2016-08-30] MEDS ORDERED: SCOOTER (13:15)
[2016-08-30] MEDS ORDERED: DOCU-41 PO (13:15)
[2016-08-30] MEDS ORDERED: WALK1EAC55 MC (13:15)
[2016-08-30] MEDS ORDERED: HYDR-656 PO (13:15)
[2016-08-30] MEDS ORDERED: HYDR-4003 PO (13:15)
--- NOTE | 2016-08-30 13:20 | PCM.DIOPOR ---
OP Ortho Discharge Instruction Dates of Hospitalization Date of Discharge: Aug 30, 2016 Providers Admitting Physician: Mirian Elliott DPM Primary Care Physician: Jatinder Pride Attending Physician: Mirian Elliott DPM Diagnosis at Time of Discharge Post operative diagnosis Right 2nd and 3rd tarsometatarsal fracture dislocation Diet Discharge Diet: Diabetic Activity Activity-General: Elevate & ice extremity, Ice incision 3-5 time/day for 20min (PLACE ICE BEHIND THE KNEE) Right Lower Extremity: Non-weight Bearing (ON RIGHT FOOT) Discharge Assist Device: Front Wheeled Walker Dressing and Incisional Care Dressing Care: Keep dressing clean, dry & intact Hygiene: No showering Additional Instructions Discharge Instructions EQUIPMENT MAINT TECH [id number]: ASPIRIN 325MG, TAKE ONE TABLET DAILY (BLOOD THINNER) EX-LAX (TAKE ONE TABLET EVERY BEDTIME, NEEDED TO HELP WITH BOWEL MOVEMENT) Follow Up Plan Follow Up Plan YOU NEED TO FOLLOW UP WITH YOUR PCP TO ESTABLISH BETTER GLUCOSE CONTROL. YOUR INSULIN DOSING HAS BEEN CHANGED IN THE HOSPITAL AND YOU ARE GETTING NEW PRESCRIPTIONS FOR THE NEW INSULIN. TAKE ONLY THE MEDICATION ON YOUR DISCHARGE LIST. Follow-up Provider (F9): Mirian Elliott DPM Follow-up appointment: Date (09/02/2016 AT 4:30PM) Call your provider for: Fever, Chills, Shortness of breath, Vomitting, Increasing pain Mirian Elliott DPM Aug 30, 2016 13:20
--- NOTE | 2016-08-30 14:50 | PCM.DC.POD ---
Discharge Summary Date of Service Aug 30, 2016 Date of Hospital Admission: Date of Surgery: August 28, 2016 Date of Discharge: Aug 30, 2016 Reason for Hospitalization: Postop pain control, diabetes management, IV antibiotics, PT. Post Operative Diagnosis Right 2nd and 3rd tarsometatarsal fracture dislocation Procedures Performed: Right 2nd and 3rd Tarsometatarsal fusion and intercuneiform stabilization Hospital Course: Patient did well with pain control, but experienced constipation and nausea from pain medication. Due to neuropathy, I recommended switching over to Tylenol and elevating/icing behind the knee otherwise to control any breakthrough pain. He needed some support in learning how to maintain NWB status on the right foot. Blood glucose control was challenging and he stayed an extra day to get the insulin regimen improved to the point of safe discharge home. Problems: (1) Lisfranc dislocation Qualifiers: Encounter type: subsequent encounter Laterality: right Qualified Code: S93.324D - Dislocation of tarsometatarsal joint of right foot, subsequent encounter Plan: No further antibiotics needed. NWB on right foot. Rx for walker and/or knee scooter given to patient. Dressing to remain clean, dry, and intact until follow up visit with me on 09/02/2016. Status: Acute ICD Code: S93.326A Disposition: home with brother Follow up Plan: Next Week in my clinic ([Knee scooter]) AD (DME) Atorvastatin (Lipitor) 40 Mg Tablet 40 MG PO DAILY Docusate Sodium (Colace) 100 Mg Capsule 100 MG PO BID Hydrocodone-Acetaminophen 5-325 mg (Hydrocodone-Acetaminophen 5-325 mg) 1 Each Tablet 1 TABLET PO Q4H PRN PRN For Pain Insulin Glargine (Lantus U100 Insulin Vial) 100 Unit/Ml Vial 45 UNIT SUBQ HS Insulin Human Lispro (HumaLOG U100 Insulin Vial) 100 Unit/Ml Unit 5 UNIT SUBQ TIDWM Check blood sugars before meals and at bedtime. Use correction factor only before meals. Blood Sugar Lispro Correction: <151, 0 units; 151-175, 1 unit; 176-200, 2 units; 201-225, 3 units; 226-250, 4 units; 251-275, 5 units; 276-300 , 6 units; 301-325, 7 units; 326-350, 8 units; 351-375, 9 units; 376-400, 10 units; >400, 12 units. Metformin (Glucophage) 1,000 Mg Tablet 1,000 MG PO BID Walker (Ultra-Light Rollator) 1 Each Each 1 EACH MC DIRECTED PRN PRN For Pain (DME) hydrOXYzine Hcl (HydrOXYzine Hcl) 25 Mg Tablet 25 MG PO HS PRN PRN hung Additional Information Patient needs close follow up after hospitalization with his PCP to adjust insulin long-term. Goal is<200 to decrease risk of infection. copies to: Trey Matos Anisa S DPM Aug 30, 2016 14:50
--- NOTE | 2016-08-30 16:48 | NUR ---
Discharge Pt d/cd home at approx 1645. Reviewed d/c instructions w/ patient, removed IV intact. Educated pt on importance of managing blood sugars and how to read insulin sliding scale. Pt left w/ hard copy of RX and all belongings via w/c to his brother's POV. VSS no complaints of pain
[2016-08-30] MEDS ORDERED: Insulin LISPRO 300 Unit/3 mL Inj SUBQ SCH (17:30)
[2016-08-30] MEDS ORDERED: Insulin GLARgine 100 Unit/mL Syringe SUBQ SCH (21:00)
--- NOTE | 2016-08-30 23:52 | PCM.PNMED ---
Subjective Date of Service Aug 30, 2016 Subjective Patient is seen and examined. Blood glucose values and insulin coverage is reviewed. Patient states that his dizziness much improved with fluid bolus yesterday, he is asking for Tylenol No. 3 instead of the opioids that were given to him for pain control as they were making him nauseated Exam Vital Signs Vital Sign - Last Date Time Temp Pulse Resp B/P Pulse Ox O2 Delivery O2 Flow Rate FiO2 08/30/16 11:42 36.7 79 18 127/77 100 Room Air Intake and Output 08/29/16 08/29/16 08/30/16 Cumulative From/Thru 15:00 23:00 07:00 08/27/16 15:55 - 08/30/16 06:48 Intake Total 702 ml 400 ml 3725 ml Output Total 1400 ml 2745 ml Balance 702 ml -1000 ml 980 ml Intake Oral 702 ml 400 ml 2302 ml IV Total 1423 ml Output Urine Total 1400 ml 2725 ml Estimated Blood Loss 20 ml # Voids 3 5 # Bowel Movements 0 Exam Gen.: No acute distress HEENT: Normocephalic, atraumatic Heart: Regular rate and rhythm last S4 sounds Lungs: Clear to auscultation no crackles or wheezes Skin: Warm and dry Neuro: No focal deficits Psych: Negative for anxiety Abdomen: Nontender nondistended normal bowel sounds Feet are warm to touch, palpable pulse in the left foot IVs and Medications IV Fluids None Medications Reviewed: Medications were reviewed in detail Lab and Diagnostics Result Diagram: 08/29/16 0446 08/29/16 0446 X-Rays, CTs and MRIs IMPRESSION: 1. Lisfranc fracture-dislocation involving the 2nd and 3rd tarsometatarsal joints as described. 2. Bony erosive changes and fragmentation medially at the 1st metatarsophalangeal and 1st interphalangeal joints likely representing sequelae of osteomyelitis. Dictated by: Kris Adams M.D. on 08/20/2016 at 15:21 Approved by: Kris Adams M.D. on 08/20/2016 at 15:44 08/20/16 CT Foot MPRESSION: Normal alignment established after ORIF and fusion of Lisfranc fracture previously identified. Mild irregularity at the medial aspect of the first MTP joint does not appear to have worsened from the prior study 05/13/16. Dictated by: Valeriano Schneider M.D. on 08/28/2016 at 10:55 Approved by: Valeriano Schneider M.D. on 08/28/2016 at 10:58 PROCEDURE: X-RAY RIGHT FOOT COMPLETE, MINIMUM THREE VIEWS ([id number]) INDICATIONS: Patient WB After surgery and felt a pop IMPRESSION: 1. Interval postsurgical changes and bony alignment. 2. Irregularity along the medial aspect of the first MTP joint unchanged. Dictated by: Justen Abel RRA Interpreted: Valeriano Schneider MD on 08/30/2016 at 9: 10 Transcribed by: LIBERTY on 08/30/2016 at 9:16 Approved by: Valeriano Schneider M.D. on 08/30/2016 at 11:36 Assessment & Plan This is a 40-year-old male with past medical history of diabetes, neuropathy, hyperlipidemia, prior osteomyelitis of the right foot presenting status post Lisfranc fracture stabilization and fusion by Dr. ULISES reese Assessment #Diabetes mellitus type II: -- A1c is ordered, A1c was 9 per next gen records, 9.1 from the lab here -- Added mealtime and humalog insulin of 5 units each, increased at bedtime Lantus to 40 units on 08/29 -- Continue sliding scale insulin -- We l recommend that patient increases his his nighttime Lantus by 45 units based on our evaluation here at [facility] -- We will recommend that patient discusses splitting his total insulin into mealtime (50%) and long-acting 50%. Because of his work schedules, he may not be able to achieve this, but this is worth discussing. Assessment #Hyperlipidemia, chronic --Continue atorvastatin 40 mg daily Assessment #Chronic neuropathy: -- Patient has no medications Lisfranc fracture fusion and repair: -- Pain control per primary team -- Physical therapy per primary team Disposition to home on 08/29/2016 following recovery Pain Evaluation: Adequate Pain Control VTE Mechanical Devices: Intermittant Pneumatic CD Resuscitation Status: CPR: Attempt Resuscitation (his brother is the alternate decision-maker) Time spent 25 min Nyasia Andrews DO Aug 30, 2016 23:52
== END 2016-08-30 16:37 | disposition home or self-care (01) ==
LOC: SAS 05:34 → OSC 11:47 → SAS 08-30 16:37
PROVIDERS: ATTEND Podiatrist
DX: S93.324A Dislocation of tarsometatarsal joint of right foot, initial encounter (principal); E11.42 Type 2 diabetes mellitus with diabetic polyneuropathy; E78.5 Hyperlipidemia, unspecified; F12.90 Cannabis use, unspecified, uncomplicated; Z79.84 Long term (current) use of oral hypoglycemic drugs; Z79.4 Long term (current) use of insulin
CPT/HCPCS: 28615; 36415; 73630; 80048; 83036; 85025; 97116; 97162; 97530; C1713; J0690; J1580; J1644; J1815; J2370; J2405; J7040; J7050; J7120

== ENCOUNTER → 2016-12-12 | Day surgery (SDC) | payer OTHER ==
[2016-12-12] VITALS (8 sets, daily range): BP systolic 111–148; BP diastolic 61–79; PULSE 78–85; RESP 11–17; O2SAT 96–99
[~2016-12-12] VITALS: Ht 185.4 cm; Wt 108.8 kg
[~2016-12-12] MED LIST changes: +CeFAZolin 2 Gm/50 mL D5W Duplex Bag IV ONE; +CeFAZolin 2 Gm/50 mL D5W IV Premix IV SCH; +CeFAZolin Inj 2 GM in Dextrose 5% 50 ML IV ONE; +Dexamethasone 4 mg/mL Inj IVPUSH PRN; +EPHEDrine Sulfate 50 mg/mL Inj IVPUSH PRN; +HYDR-4003 PO; +HYDROcodone-APAP 5-325 mg Tablet PO PRN; +HYDROmorphone 1 mg/mL Inj IVPUSH PRN; -INSU100I25 SQ; +INSU100V4 SUBQ; +Ketamine 10 mg/mL 20 mL Inj ONE; +Lactated Ringer's 1,000 ML IV ONE; +Lactated Ringer's 500 ML IV PRN; +Lidocaine 2%-Epi 1:100,000 20 mL Inj NERVEBLOCK ONE; +MetoCLOpramide 5 mg/mL 2 mL Inj IVPUSH PRN; +Ondansetron 2 mg/mL 2 mL Inj IVPUSH PRN; +Ondansetron 2 mg/mL 2 mL Inj ONE; +Phenylephrine 10,000 mCg/mL Inj IVPUSH PRN; +Propofol 10,000 mCg/mL 20 mL Inj ONE; +Remifentanil 1 mg/3 mL Inj ONE; -SULF1TAB35 PO; +fentaNYL-PF 50 mCg/mL 2 mL Inj IVPUSH PRN
--- NOTE | 2016-12-12 09:19 | PCM.PODPO ---
Podiatry Operative Report Date of Service: Dec 12, 2016 Date of Service Dec 12, 2016 Pre Operative Diagnosis Hardware failure, right foot Post Operative Diagnosis Hardware failure, right foot Nonunion of Lisfranc fracture dislocation, right foot Procedure Excision of deep loosened hardware and loose bone fragments, right foot Surgeon Surgeon: Mirian Elliott DPM Assistants: None Indication for Procedure Radiographic evidence of loosening hardware and possible nonunion. Findings Significant softening of bone structure. Nonunion of previous second metatarsal fracture Details of Procedure The patient was identified in the preoperative holding area and brought back to the operating room. He was placed on the operating table in supine position. IV sedation was initiated and the time out protocol completed. The patients name and site of surgery were confirmed. The right foot was prepped and draped in the usual aseptic manner. Local anesthetic was administered, containing epinephrine in the incisional area only for hemostasis. No tourniquet was necessary. Bleeding vessels were cauterized as needed and neurovascular structures retracted where possible throughout the procedure. The incision was made on the dorsal aspect of the right foot, following the existing scar. It was deepened sharply and bluntly, incising the exuberant scar tissue and bone fragmentation. Several bone fragments were found extruded above loose screws. All 5 screws were found to be loose and not engaging any bone. The screws were easily removed as well as the plate. The base of the second metatarsal was found to have very soft tissue and no bone growth. Some reactive on fragments are found at the medial aspect of the third metatarsal. I resected all loose bone fragments and excessive scar tissue, where necessary. I used fluoroscopy for guidance for the second incision. The second incision was made on the medial aspect of the first metatarsal base and medial cuneiform. The 2 screw heads were easily identified and soft tissue retracted with Brockwell elevator. Both of those screws were found to be loose and removed without any resistance. Additional fluoroscopic imaging was obtained at this point and no healing or fracture callus was identified. The fourth and fifth metatarsal bases appeared to be stable. Due to loss of normal bone contour, additional fixation was not possible. Irrigation was performed with normal saline. The deep soft tissue was reapproximated with Vicryl suture, the skin closed with Prolene. Dressing consisted of sterile silk, saline moistened gauze, Kerlix and a well-padded posterior splint. The patient was weaned off of anesthesia and transported to the recovery room with vital signs stable and vascular status to the operative foot intact. Grafts, Implants: None Complications There were no periprocedural complications identified. Condition Stable Anesthetic Administered: GA Drains: None Catheters: None Output, Estimated Blood Loss: 20 (ml) Blood Admin during surgery: No Surgical Cast or Splint: Well-padded Short Leg Splint Surgical Specimen Removed: No Specimen sent to Pathology: No Post Operative Plan Bone necrosis versus atrophic nonunion. A trial of bone stimulator will be employed for the next 6 weeks and radiographic imaging will be used for guidance for further reconstruction, if possible. Custom AFO is planned for further ambulation. Limb salvage efforts to continue. Mirian Elliott DPM Dec 12, 2016 09:19
--- NOTE | 2016-12-12 09:34 | PCM.HPANE ---
Patient Data Surgeon Admitting Provider: Attending Provider:Mirian Elliott DPM Primary Care Physician:Dakotah Shane MD Other Provider:Terri Sosa Anesthesia Reason for Visit Failed Hardware Right Foot Ht/WT & BMI Height (Feet): 6 Height (Inches): 1 Weight (Kilograms): 108.8 Body Mass Index 31.00 Allergies Coded Allergies: No Known Allergies (Unverified , 12/10/16) Past Anesthesia History Anesthesia History: Denies:: Abnormal Airway, Anesthesia Reactions, Difficult Intubation, Fam Anesthesia Reaction, Fam Malignant Hypertherm, Malignant Hyperthermia Diabetes History Hx Diabetes?: Yes Type of Diabetes: Type II Glycemic Control: Insulin & Oral Medication Current Bedside Blood Glucose: 179 MRSA MRSA: No Medications Hypertension Medication: No Home Meds Incl Beta Fadumo: No Active Scripts Hydrocodone-Acetaminophen 5-325 mg 1 Each Tablet1 Tablet PO Q4H PRN For Pain # 60 TABLET Ref 0 Prov:Mirian Elliott DPM 12/12/16 Reported Medications Metformin (Glucophage)1,000 Mg Tablet1,000 Mg PO BID Ref 0 12/10/16 Insulin Detemir (Levemir U100 Insulin Vial)100 Unit/1 Ml Vial40 Unit SUBQ QPM # 1 VIAL Ref 0 12/10/16 Hydrocodone-Acetaminophen 5-325 mg 1 Each Tablet1 Tablet PO QID PRN For Pain Ref 0 12/10/16 Atorvastatin (Lipitor)40 Mg [id number] Mg PO DAILY Ref 0 12/10/16 Discontinued Reported Medications Metformin (Glucophage)1,000 Mg Tablet1,000 Mg PO BID Ref 0 08/27/16 Atorvastatin (Lipitor)40 Mg [id number] Mg PO DAILY Ref 0 08/27/16 Discontinued Scripts [Knee scooter] No Conflict Check #1 AD postop nonweightbearing 8 wk Prov:Mirian Elliott DPM 08/30/16 Walker (Ultra-Light Rollator)1 Each Each #1 EACH MC DIRECTED PRN For Pain Prov:Mirian Elliott DPM 08/30/16 Docusate Sodium (Colace)100 Mg [id number] Mg PO BID #100 CAPSULE Prov:Mirian Elliott DPM 08/30/16 hydrOXYzine Hcl (HydrOXYzine Hcl)25 Mg [id number] Mg PO HS PRN hung #20 TABLET Prov:Mirian Elliott DPM 08/30/16 Hydrocodone-Acetaminophen 5-325 mg 1 Each Tablet1 Tablet PO Q4H PRN For Pain # 30 TABLET Ref 0 Prov:Mirian Elliott DPM 08/30/16 Insulin Human Lispro (HumaLOG U100 Insulin Vial)100 Unit/Ml Unit5 Unit SUBQ TIDWM 30 Days Check blood sugars before meals and at bedtime. Use correction factor only before meals. Blood Sugar Lispro Correction: <151, 0 units; 151-175, 1 unit; 176-200, 2 units; 201-225, 3 units; 226-250, 4 units; 251-275, 5 units; 276-300, 6 units; 301-325, 7 units; 326-350, 8 units; 351-375, 9 units; 376-400, 10 units; >400, 12 units. Prov:Mirian Elliott DPM 08/30/16 Insulin Glargine (Lantus U100 Insulin Vial)100 Unit/Ml Vial45 Unit SUBQ HS 30 Days Prov:Mirian Elliott DPM 08/30/16 History History of ENT Problems?: No HEENT History: Positive for:: Hearing Problem Denies:: Abnormal Airway Cataracts Difficult Intubation Dysphagia Glaucoma Sinus Problem TMJ Denture Type: None Teeth Condition: Within Normal Limits Missing Teeth Hx of Heart Problems?: Yes Cardiovascular History: Denies:: Congestive Heart Failure Heart Murmur Hypertension (HYPERLIPIDEMIA) Hx of Respiratory Problem?: No Respiratory History: Denies:: Tuberculosis Use of C-PAP Machine Use of Inhalers / NEBS Hx Neurologic Problems?: No Neurological History: Denies:: Alzheimer's Disease CVA Parkinson's Disease TIA Hx of GI Problems?: No Hx of Problems?: No Male Hx: Denies:: Prostate Problems Scrotal Mass Testicular Surgery Skin History: Denies:: History Skin Disorders? 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 Denies:: Blood Transfusions Hx Diabetes: YesBedside Blood Glucose: 179 Hx Alcohol Use: No (quit 6 months ago)Hx Substance Use: Yes (smoke marijuana) Smoking Status: Never Smoker Have You Smoked inLast 12 mo: No Stop/Bang Treated for Sleep Apnea?: No Do You Have a CPAP Machine?: No S-Snoring: Do You Snore Loudly: No T-Tired: feel tired, fatigued: No O-Obsered: Observed not breath: No P-Blood Pressure: treated: No B- Body Mass Index > 35 kg/m2: No A- Age over 50: No N- Neck Large Circumference: No G- Gender Male: Yes MANUELITO Total Score: 1 MANUELITO Risk Assessment: Low Risk, <3 Yes Risk Assessment Category Category 1A: Patient has history of documented sleep apnea, and HAS NOT received any narcotic, sedative or anesthesia administration during this stay. Category 1B: Patient has history of documented sleep apnea, and HAS received any narcotic , sedative or anesthesia administration during this stay Category 2: Patient has SUSPECTED Obstructive Sleep Apnea, and HAS received any narcotic , sedative or anesthesia administration during this stay. Category 3: Patient has SUSPECTED Obstructive Sleep Apnea and HAS NOT received narcotic, sedative or anesthesia administration during this stay. Category 4: Outpatient in Procedural Areas with known sleep apnea or who screen positive for High Risk via the STOP/BANG questionnaire. Exam Exam Vital Signs Vital Signs Date Time Temp Pulse Resp B/P Pulse Ox O2 Delivery O2 Flow Rate FiO2 12/12/16 09:29 36.5 79 16 148/77 99 Room Air 12/12/16 09:15 84 17 138/76 99 Room Air 12/12/16 09:10 36.4 78 11 142/79 99 Room Air 12/12/16 09:05 82 14 143/76 98 Room Air 12/12/16 09:00 81 12 134/73 98 Room Air 12/12/16 08:55 82 12 111/61 97 Room Air 12/12/16 08:50 36.6 85 11 111/61 96 Room Air 12/12/16 06:26 35.7 84 17 130/76 96 Room Air General Appearance: Alert, Oriented X3, Cooperative, No Acute Distress HEENT/AIRWAY: MP 2 Lungs: Clear to Auscultation, Normal Air Movement Heart: Exam Unremarkable, Regular Rate/Rhythm, No Murmurs/Rubs/Gallops Meds/Labs/Diagnostics Admission Meds Current Medications Lactated Ringer's 1,000 ml @ ud STK-MED ONCE IV Last administered on 06:39; Start 12/12/16 at 06:39; Stop 12/12/16 at 06:40; Status DC Cefazolin Sodium/ Dextrose/Premix (Ancef Inj/IV Premix) 50 ml @ 100 mls/hr PREOP IV Last administered on 12/12/16 07:30; Start 12/12/16 at 07:02; Stop at 17:00 Lidocaine HCl (Xylocaine 1% Inj) 20 ml STK-MED ONCE INJ Last administered on 07:57; Start 12/12/16 at 07:57; Stop 12/12/16 at 08:02; Status DC Lidocaine/ Epinephrine (Xylocaine 2%-Epinephrine 1:100,000 Inj) 20 ml STK-MED ONCE NERVEBLOCK Last administered on 12/12/16 07:58; Start 12/12/16 at 07:58; Stop 12/12/16 at 08:02; Status DC Bedside Blood Glucose: 179 Plan Impression Patient chart reviewed, patient interviewed and anesthestic plan with risks, benefits, and alternatives discussed, and informed consent obtained. ASA Physical Status: ASA3 Severe Disease (DM complications) Anesthetic Plan: GA Bene/Risks/Altern/Consents: Yes HP Complete Prior to Induction: Yes César Winter MD Dec 12, 2016 09:34
--- NOTE | 2016-12-12 09:35 | PCM.ANEP1 ---
Post Anesthesia PACU Phase 1 Assessment Vital Signs Vital Signs Date Time Temp Pulse Resp B/P Pulse Ox O2 Delivery O2 Flow Rate FiO2 12/12/16 09:29 36.5 79 16 148/77 99 Room Air 12/12/16 09:15 84 17 138/76 99 Room Air 12/12/16 09:10 36.4 78 11 142/79 99 Room Air 12/12/16 09:05 82 14 143/76 98 Room Air 12/12/16 09:00 81 12 134/73 98 Room Air 12/12/16 08:55 82 12 111/61 97 Room Air 12/12/16 08:50 36.6 85 11 111/61 96 Room Air 12/12/16 06:26 35.7 84 17 130/76 96 Room Air Anesthetic Administered: GA Level of Alertness: Awake, talking MARIEE's with Equal Strength: Yes Pain: No Nausea or Vomiting: No CV Function & Hydration Stable: Yes Airway Device: Oxygen Delivery: Nasal Cannula Lungs: Clear to Auscultation, Normal Air Movement PACU Phase 2 Assessment Complications: No Follow up Care: No Patient Instructions Provided: N/A César Winter MD Dec 12, 2016 09:35
--- NOTE | 2016-12-12 15:59 | DRSVH ---
PROCEDURE: X-RAY RIGHT FOOT COMPLETE, MINIMUM THREE VIEWS ([id number]) INDICATIONS: postop TECHNIQUE: 3 views of the foot were acquired. COMPARISON: [facility], CR, XR FOOT 3VW RT, 09/23/2016, 17:22. [facility], CR, XR FOOT 3VW RT, 09/13/2016, 14:02. [facility], CR, XR FOOT 3VW RT, 08/29/2016, 16:18. [facility], CR, XR FOOT 3VW RT, 10/09/2016, 17:36. FINDINGS: Bones: Fine bryan detail obscured by overlying cast material. Within these limits, fixation hardwar e involving the medial cuneiform as well as the second cuneiform and second/third metatarsal bases/pr oximal shaft has been removed. Residual geographic bony lucency is present related to the removed rowley rdware. Bony alignment is stable. Moderate first MTP and diffuse interphalangeal joint degeneration redemonstrated and mild degenerative change within the midfoot. Soft tissues: No tibiotalar joint effusion. Achilles tendon appears normal. Vascular calcification s indicate atherosclerosis. IMPRESSION: Removal of surgical hardware and stable bony alignment Dictated by: Justen Abel A Interpreted: Miri Altamirano MD on 12/12/2016 at 10:28 Approved by: Miri Altamirano M.D. on 12/12/2016 at 15:57
== END | disposition home or self-care (01) ==
LOC: SAS 06:04
PROVIDERS: ATTEND Podiatrist
DX: T84.038A Mechanical loosening of other internal prosthetic joint, initial encounter (principal); S92.324K Nondisplaced fracture of second metatarsal bone, right foot, subsequent encounter for fracture with nonunion; E11.42 Type 2 diabetes mellitus with diabetic polyneuropathy; Z79.4 Long term (current) use of insulin; Z79.84 Long term (current) use of oral hypoglycemic drugs
CPT/HCPCS: 28615; 73630; J0690; J2250; J2405; J2704; J7120